=== PATIENT | female | born 1955 | race Caucasian/White ===

== ENCOUNTER → 2017-12-23 12:59 | Outpatient (CLI) | payer OTHER | END | disposition home or self-care (01) | LOC: D.RT 12:59 | DX: Z02.71 Encounter for disability determination (principal) ==

== ENCOUNTER 2018-04-28 07:52 | Day surgery (SDC) | payer MEDICAID ==
[~2018-04-28] VITALS: Ht 162.6 cm; Wt 83.5 kg
[2018-04-28 08:31] LABS: BASOPHILS 0 % (0-2); EOSINOPHILS 0.5 % (0-7); HEMATOCRIT 35.5 % (36.0-48.0); HEMOGLOBIN 11.5 g/dL (12-16); IMMATURE GRANULOCYTES 0.3 % (0-5); LYMPHOCYTES 6.8 % (15-50); MCHC 32.4 g/dL (31.0-37.0); MCV 86.4 fL (80.0-100.0); MEAN PLATELET VOLUME 9.4 fL (7.4-10.4); MONOCYTES 10.9 % (2-11); NEUTROPHILS 81.5 % (40-80); PLATELET COUNT 359 10x3/uL (130-400); RBC 4.11 10x6/uL (4.00-5.40); RDW 15.5 % (11.5-14.5); WBC 7.5 10x3/uL (4.8-10.8)
[2018-04-28 08:32] LABS: CALC OSMOLALITY 278 mosm/kg (275-300); CALCIUM 9.6 mg/dL (8.5-10.1); CARBON DIOXIDE 29.3 mmol/L (21.0-32.0); CHLORIDE - SERUM 98 mmol/L (98-107); CREATININE - SERUM 0.6 mg/dL (0.6-1.3); GLUCOSE 141 mg/dL (74-106); SODIUM 138 mmol/L (136-145); UREA NITROGEN 15 mg/dL (7-18); eGFR NON AFRICAN AMERICAN > 90 mL/min (90-120)
[2018-04-28] MEDS ORDERED: CYMBALTA30 MG PO (08:52)
[2018-04-28] MEDS ORDERED: BENZONATATE200 MG PO (08:52)
[2018-04-28] MEDS ORDERED: NORCO 10-325 TA1 TAB PO (08:53)
[2018-04-28] MEDS ORDERED: DULERA 200 MCG8.8 GM INH (08:54)
[2018-04-28] MEDS ORDERED: ALBUTEROL SULF8.5 GM (08:55)
[2018-04-28 09:02] VITALS: BP 120/76; BMI 31.8
--- NOTE | 2018-04-28 13:31 | OP ---
PATIENT NAME: NICHOLE NGUYEN MEDICAL RECORD: [id number] :59 LOCATION:D.OPS ADMISSION DATE: SURGEON: BRADLY EMMANUEL MD DATE OF OPERATION: 04/28/2018 PREOPERATIVE DIAGNOSES: 1. Radiation esophagitis. 2. Dysphagia. 3. Odynophagia. 4. Lung cancer. 5. Chronic obstructive pulmonary disease. POSTOPERATIVE DIAGNOSES: 1. Radiation esophagitis. 2. Dysphagia. 3. Odynophagia. 4. Lung cancer. 5. Chronic obstructive pulmonary disease. PROCEDURES: 1. EGD with biopsy. 2. PEG tube placement. SURGEON: Bradly Emmanuel MD REPORT OF PROCEDURE: The Olympus endoscope was advanced through the patient's mouth. As we entered the esophagus, we could immediately see there were inflammatory changes throughout the length of the esophagus extending down to the lower third. The lower third of the esophagus actually did not have as much inflammatory changes present and the tissue looked fairly normal. The upper two-thirds of the esophagus had a lot of inflammatory changes with some ulcerations and some areas of bleeding. There were no signs of any strictures, masses, or lesions visible. As we passed through the stomach, we entered the duodenum. We were able to get to the second portion of the duodenum and this all appeared to be normal. As we pulled back through the pylorus, the stomach had no signs of any masses, lesions, or ulceration. There were no signs of gastritis. A biopsy was taken of the antrum of the stomach and sent off for permanent specimen. We retroflexed the camera and looked back to see the GE junction. There was no sign of a hiatal hernia present. There were no inflammatory changes on the most proximal aspect of the cardia or fundus. We then pulled the scope back into the distal esophagus. The GE junction rested at about 38 cm from the teeth. Once we had about 25 cm from the teeth, as we continued our pullback, most of the esophagus at this point was noted to be markedly inflamed and swollen. We took a biopsy of the distal third of the esophagus and the tissue appeared normal. On the middle portion of the esophagus, we attempted a biopsy, but the inner lining tissue of the esophagus would just peel right off. We sent some of this tissue off for permanent specimen. At this point, we elected just go ahead and perform a PEG tube placement. We advanced the scope back into the stomach and found the area on the antrum. A total of 5 cc of 1% lidocaine was infused into the surrounding tissues, and the abdomen was prepped in sterile fashion. The skin incision was then made on the left upper mid abdomen and an Angiocath needle was inserted through the abdominal wall into the lumen of the stomach. A wire was advanced through there and this was grasped with an Endo-Snare. These were all pulled out through the mouth and esophagus, and a PEG tube was affixed to it. The wire OPERATIVE REPORT [id number] NICHOLE NGUYEN and PEG tube were pulled through the abdominal cavity and they rest in good position at approximately 5 cm at the skin. We readvanced the endoscope into the stomach and could see there was just a small amount of bleeding around the PEG tube site. The PEG tube was affixed into position appropriately and at this point the insufflation and the scope were removed. COMPLICATIONS: None. CONDITION: Stable. ANESTHESIA: TIVA. BLOOD LOSS: Minimal. TRANSINT:[id number] Voice Confirmation ID: [id number] DOCUMENT ID: [id number] BRADLY EMMANUEL MD at 1331 CC: MAN OLVE MD, OFELIA FULTON MD and KYE RODRIGUEZ [phone] DICTATION DATE: 04/28/18 1205 ACCOUNTS PAYABLE SUPERVISOR: 04/28/18 1242 REG [facility] [address] [place] [address]
[2018-04-28 13:35] VITALS: Ht 162.6 cm; Wt 83.5 kg
== END 2018-04-28 14:08 | disposition home or self-care (01) ==
LOC: D.OPS 07:52
PROVIDERS: Surgery
DX: K20.8 Other esophagitis (principal); T66.XXXA Radiation sickness, unspecified, initial encounter; R13.10 Dysphagia, unspecified; C34.90 Malignant neoplasm of unspecified part of unspecified bronchus or lung; J44.9 Chronic obstructive pulmonary disease, unspecified; Z01.812 Encounter for preprocedural laboratory examination